=== PATIENT | female | born 1950 | race Caucasian/White ===

== ENCOUNTER → 2017-11-16 | Day surgery (SDC) | payer OTHER, MEDICARE ==
[~2017-11-16] VITALS: Ht 167.6 cm; Wt 66.7 kg
--- NOTE | 2017-11-16 15:01 | Operative Report ---
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 The risks, benefits, and alternatives to surgery were discussed at length with the patient. Informed consent was obtained. Patient was brought to the operating room where she was placed under propofol sedation. A retrobulbar block was placed on the left eye without complication. The left eye was prepped and draped in a normal sterile fashion. A speculum was placed in the left eye with good exposure. Paracenteses were made using stab incisions. Viscoelastic was used to fill the anterior chamber. A clear corneal incision was made with a keratome blade. The pupil membrane was dissected with viscoelastic. Using intraocular forceps and intraocular scissors the membrane was peeled and excised until the lens was revealed. All posterior synechiae were lysed using viscoelastic. Viscoelastic was removed with irrigation and aspiration. A suture was placed in the clear corneal incision. A pedunculated conjunctival lesion at the caruncle was excised at the base. Triamcinolone 40 mg per mL 0.2 mL was placed under the conjunctiva. A speculum was removed. The patient was brought to recovery area without incident or instructions given to follow-up the next day for routine postoperative care.
== END ==
LOC: STS 02:01
DX: H21.42 Pupillary membranes, left eye (principal); H57.09 Other anomalies of pupillary function; G47.33 Obstructive sleep apnea (adult) (pediatric); I48.91 Unspecified atrial fibrillation; Z79.01 Long term (current) use of anticoagulants; I10 Essential (primary) hypertension; E11.9 Type 2 diabetes mellitus without complications; K21.9 Gastro-esophageal reflux disease without esophagitis; J43.9 Emphysema, unspecified; Z87.891 Personal history of nicotine dependence
CPT/HCPCS: J2250; V2632